=== PATIENT | male | born 1985 | race Caucasian/White ===

== ENCOUNTER 2018-04-10 22:53 | Emergency (ER) | payer OTHER ==
[~2018-04-10] VITALS: Ht 165.1 cm; Wt 72.6 kg
[2018-04-10] MEDS ORDERED: ONDANSETRON ODT 4 MG TAB.RAPDIS PO ONE (23:30)
[2018-04-11] MEDS ORDERED: ONDANSETRON ODT 4 MG TAB.RAPDIS PO ONE (00:30)
--- NOTE | 2018-04-11 00:32 | RAD ---
RIGHT ANKLE AP, LATERAL, OBLIQUE Clinical Indication: Injury tonight. Pain radiating up from right lateral malleolus Comparison: None. Findings: There is no acute fracture or dislocation. Mineralization is normal. Joint spaces are maintained. The ankle mortise is intact. There is no ankle joint effusion. There is no radiographically apparent soft tissue swelling. IMPRESSION: No acute fracture. Electronically signed by: Reji Wilkinson MD (04/11/2018 12:29 AM) [facility]
--- NOTE | 2018-04-11 01:02 | PHYS DOC ---
Adult General Chief Complaint Chief Complaint: ANKLE PROBLEM HPI HPI 32-year-old male presents via EMS because he was found lying in the bathroom with emesis all around him. When I the patient if he has any complaints, he states that his right ankle hurts. He denies any other complaints. He denies calling the ambulance. He doesn't understand why anyone called an ambulance to bring him here. When the patient initially arrived, he was coherent, but acting a bit odd. He is consistently only complained about right ankle pain. Patient does not admit to alcohol or drug use. He denies fever or chills. Review of Systems Review of Systems Constitutional: Denies fever or chills [] Eyes: Denies change in visual acuity, redness, or eye pain [] HENT: Denies nasal congestion or sore throat [] Respiratory: Denies cough or shortness of breath [] Cardiovascular: No additional information not addressed in HPI [] GI: Denies abdominal pain, nausea, vomiting, bloody stools or diarrhea [] : Denies dysuria or hematuria [] Musculoskeletal: Right ankle pain[] Integument: Denies rash or skin lesions [] Neurologic: Denies headache, focal weakness or sensory changes [] Endocrine: Denies polyuria or polydipsia [] All other systems were reviewed and found to be within normal limits, except as documented in this note. Current Medications Current Medications Current Medications Medications (Trade) Dose Ordered Sig/Avril Start Time Stop Time Status Last Admin Dose Admin Ondansetron HCl (Zofran Odt) 4 mg 1X ONCE 04/11/18 00:30 04/11/18 00:31 DC Allergies Allergies Allergies Coded Allergies Type Severity Reaction Last Updated Verified No Known Drug Allergies 04/10/18 No Physical Exam Physical Exam Constitutional: Well developed, well nourished, no acute distress, non-toxic appearance. [] HENT: Normocephalic, atraumatic, bilateral external ears normal, oropharynx moist, no oral exudates, nose normal. [] Eyes: PERRLA, EOMI, conjunctiva normal, no discharge. [] Neck: Normal range of motion, no tenderness, supple, no stridor. [] Cardiovascular:Heart rate regular rhythm, no murmur [] Lungs & Thorax: Bilateral breath sounds clear to auscultation [] Abdomen: Bowel sounds normal, soft, no tenderness, no masses, no pulsatile masses. [] Skin: Warm, dry, no erythema, no rash. [] Back: No tenderness, no CVA tenderness. [] Extremities: Mild tenderness with right ankle palpation, no ecchymosis, no swelling. Patient is able to walk.[] Neurologic: Alert and oriented X 3, normal motor function, normal sensory function, no focal deficits noted. [] Psychologic: Affect normal, judgement normal, mood normal. [] EKG EKG [] Radiology/Procedures Radiology/Procedures [] Impressions: RIGHT ANKLE AP, LATERAL, OBLIQUE Clinical Indication: Injury tonight. Pain radiating up from right lateral malleolus Comparison: None. Findings: There is no acute fracture or dislocation. Mineralization is normal. Joint spaces are maintained. The ankle mortise is intact. There is no ankle joint effusion. There is no radiographically apparent soft tissue swelling. IMPRESSION: No acute fracture. Electronically signed by: Reji Perdomo MD (04/11/2018 12:29 AM) [facility] DICTATED AND SIGNED BY: REJI PERDOMO MD DATE: 04/11/18 0027 CC: ROGER GARCIA DO ~ Course & Med Decision Making Course & Med Decision Making Pertinent Labs and Imaging studies reviewed. (See chart for details) The patient only complains of right ankle pain. His ankle x-ray is negative for fracture. Though the patient denies it, he is likely intoxicated in some way. He is alert and aware of his surroundings. He is able to make decisions. He does not need to be admitted for his own safety. He is stable for discharge at this time. [] Dragon Disclaimer Dragon Disclaimer This electronic medical record was generated, in whole or in part, using a voice recognition dictation system. ROGER GARCIA DO Apr 11, 2018 01:02
[2018-04-11 01:05] VITALS: BP 106/63
== END 2018-04-11 01:17 | disposition home or self-care (01) ==
LOC: ER 22:53
DX: M25.571 Pain in right ankle and joints of right foot (principal); R11.10 Vomiting, unspecified
CPT/HCPCS: 73610; 99284; Q0162